=== PATIENT | female | born 1970 ===

== ENCOUNTER 2021-02-10 20:11 | Emergency (ER) | payer OTHER ==
[~2021-02-10] VITALS: Ht 152.4 cm; Wt 89.8 kg
[2021-02-10] MEDS ORDERED: FEMARA2.5 MG PO (20:50)
== END 2021-02-11 00:26 | disposition home or self-care (01) ==
LOC: ER 20:11
DX: I16.0 Hypertensive urgency (principal); I10 Essential (primary) hypertension